=== PATIENT | female | born 1985 | race Caucasian/White ===

== ENCOUNTER 2024-06-06 04:35 | Emergency (ER) | payer SELFPAY ==
[~2024-06-06] VITALS: Ht 165.1 cm; Wt 82.0 kg
[2024-06-06 04:38] VITALS: O2SAT 96
[2024-06-06] MEDS: TETANUS, DIPHTHERIA, PERTUSSIS VAC/PF 0.5ML (>10YR OLD) IM ONE (06:13)
[2024-06-06] MEDS: HYDROCODONE/ACETAMINOPHEN 5/325MG TABLET PO ONE (06:13)
[2024-06-06] MEDS: BACITRACIN ZINC OINT UDPKT TOP NR (08:15)
[2024-06-06] MEDS: LIDOCAINE HCL/PF 1% 10 MG/ML 5ML VIAL INFIL NR (08:15)
[2024-06-06] MEDS: BACITRACIN ZINC OINT UDPKT TOP ONE (08:16)
[2024-06-06] MEDS: LIDOCAINE HCL/PF 1% 10 MG/ML 5ML VIAL INFIL ONE (08:16)
[2024-06-06 08:19] VITALS: BP 119/68; PULSE 80; RESP 16; TEMP 36.66960; O2SAT 96
== END 2024-06-06 08:19 | disposition home or self-care (01) ==
LOC: ER 04:35
DX: S01.112A Laceration without foreign body of left eyelid and periocular area, initial encounter (principal); X58.XXXA Exposure to other specified factors, initial encounter; Y93.89 Activity, other specified; Y92.89 Other specified places as the place of occurrence of the external cause; Y99.8 Other external cause status
CPT/HCPCS: 99285; 70450; 70486; 90715; 12014; 90471; J3490